=== PATIENT | female | born 2000 | race Hispanic/Latino ===

== ENCOUNTER 2018-10-08 11:51 | Emergency (ER) | payer OTHER ==
[2018-10-08] MEDS ORDERED: ACETAMINOPHEN 325 MG TAB ONE (12:30)
[2018-10-08 13:07] LABS: RAPID GROUP A STREP NEGATIVE (NEGATIVE)
[2018-10-08 13:25] LABS: APPEARANCE,URINE Clear (CLEAR); BILIRUBIN,URINE Negative (NEGATIVE); COLOR,URINE Dark Yellow (YELLOW); GLUCOSE, URINE (UA) Negative (NEGATIVE); KETONES,URINE >=160 mg/dL (NEGATIVE); LEUKOCYTE ESTERASE ,URINE Moderate (NEGATIVE); NITRATE,URINE Negative (NEGATIVE); OCCULT BLOOD,URINE Nonhemolyzed Trace (NEGATIVE); PH,URINE 5.5 (5.0-8.0); PROTEIN,URINE Trace (NEGATIVE)
[2018-10-08 13:29] LABS: HCG,QUAL RESULT POSITIVE (NEGATIVE)
[2018-10-08 13:35] LABS: BACTERIA,URINE Few /HPF (None Seen); MUCUS,URINE Moderate LPF (None Seen); RBC,URINE 0-1 /HPF (0-1); SQUAMOUS EPITHELIAL CELL,UR Few /HPF (0-2); WBC,URINE 0-1 /HPF (0-1)
[2018-10-08] MEDS ORDERED: CEFTRIAXONE SODIUM 1 GM ONE (13:36)
[2018-10-08] MEDS ORDERED: LIDOCAINE HCL-MPF 1% 2ML VIAL ONE (13:36)
== END 2018-10-08 14:11 | disposition home or self-care (01) ==
LOC: EDH 11:51
DX: J09.X2 Influenza due to identified novel influenza A virus with other respiratory manifestations (principal); Z33.1 Pregnant state, incidental
CPT/HCPCS: 81001; 81025; 87804 ×2; 87880; 96372; 99284; J0696; J3490